=== PATIENT | female | born 1990 | race Caucasian/White ===

== ENCOUNTER 2016-12-26 15:44 | Emergency (ER) | payer OTHER ==
[~2016-12-26] VITALS: Ht 167.6 cm; Wt 74.8 kg
[2016-12-26 16:04] VITALS: BP 105/58
[2016-12-26] MEDS ORDERED: PREN-380 PO (16:06)
--- NOTE | 2016-12-26 17:27 | NUR ---
Patient transferred to bed 4 via wheelchair by tech. RN evaluating patient at bedside.
--- NOTE | 2016-12-26 17:29 | NUR ---
26F BIB FAMILY C/O NAUSEA/VOMITING X 2 DAYS; PT STATES HAD "ABOUT 15 EPISODES" OF VOMITING TODAY, BUT DENIES DIARRHEA AT THIS TIME; ABDOMEN SOFT, NON-TENDER, ACTIVE BOWEL SOUNDS X4 QUADRANTS; PT C/O RT LOWER ABDOMINAL PAIN, SHARP, RADIATES TO LEFT LOWER ABDOMEN, 8/10 X 2 DAYS; PT A&OX4, BL LUNG SOUNDS CLEAR, RR EVEN/UNLABORED, SKIN IS WARM/DRY/INTACT; PT STATES 12 WEEKS AT THIS TIME. PT RESTING IN BED W/ HOB ELEVATED AND IN LOWEST POSITION; POSITIONED FOR COMFORT; ER MD MADE AWARE OF STATUS. WILL CONTINUE TO MONITOR.
[2016-12-26] MEDS ORDERED: NACL 0.9% 1,000 ML IV SCH (17:39)
[2016-12-26] MEDS ORDERED: ONDANSETRON 4 MG/2 ML VIAL IVP ONE (17:40)
[2016-12-26] MEDS ORDERED: NACL 0.9% 1,000 ML IV ONE (17:45)
[2016-12-26] MEDS ORDERED: MORPHINE SULFATE 2 MG/ML SYR IVP ONE (17:45)
--- NOTE | 2016-12-26 17:56 | NUR ---
US AT BEDSIDE.
[2016-12-26 18:20] LABS: APPEARANCE,URINE CLOUDY (CLEAR); BLOOD, URINE TRACE-L (NEGATIVE); COLOR,URINE YELLOW (YELLOW); LEUKOCYTE ESTERASE ,URINE NEGATIVE (NEGATIVE); NITRITE, URINE NEGATIVE (NEGATIVE); PROTEIN,URINE 1+ (NEGATIVE); UGLUCOSE NEGATIVE (NEGATIVE); UROBILINOGEN,URINE 0.2 EU/dL (0.2 - 1)
[2016-12-26 18:26] LABS: BILIRUBIN,URINE NEGATIVE (NEGATIVE)
[2016-12-26 18:28] LABS: HEMATOCRIT 39.2 % (36-48); HEMOGLOBIN 13.1 g/dL (12.0-16.0); MEAN CORPUSCULAR HEMOGLOBIN 30 pg (27-31); MEAN CORPUSCULAR HGB CONC 34 g/dL (33-37); MEAN CORPUSCULAR VOLUME 88 fL (80-94); PLATELET COUNT (AUTO) 334 K/uL (140-450); RED BLOOD CELL COUNT(AUTO) 4.45 MIL/uL (4.20-5.40); RED CELL DISTRIBUTION WIDTH 11.7 % (11.6-13.7); WHITE BLOOD COUNT (AUTO) 20.7 K/uL (4.8-10.8)
[2016-12-26 18:29] LABS: BACTERIA,URINE FEW /HPF (None Seen); MUCUS,URINE 4+ /LPF (None Seen); RBC,URINE 0-3 /HPF (0-5); WBC,URINE 0-3 /HPF (0-5)
[2016-12-26 18:30] LABS: URINE AMORPHOUS URATE 3+ /HPF (None Seen)
[2016-12-26 18:33] LABS: BAND % (MANUAL) 2 % (0-8); LYMPHOCYTES % (MANUAL) 5 % (20-46); MONOCYTES % (MANUAL) 5 % (5-12); NEUTROPHILS % (MANUAL) 88 (43-65); PLATELET ESTIMATE ADEQUATE
[2016-12-26 18:43] LABS: ANION GAP 16.1 (8-16); CREATININE 0.7 mg/dL (0.6-1.3); POTASSIUM 3.1 mmol/L (3.5-5.1)
[2016-12-26 18:48] LABS: ALBUMIN 3.8 g/dL (3.4-5.0); TOTAL BILIRUBIN 0.3 mg/dL (0.0-1.0); TOTAL PROTEIN, SERUM 7.7 g/dL (6.4-8.2)
--- NOTE | 2016-12-26 19:12 | NUR ---
Pt report given to PAOLA PERALES. Transfer of care at this time.
--- NOTE | 2016-12-26 19:16 | NUR ---
GOT REPORT FROM PAOLA AYALA. PT. RESTING IN BED, NO S/SX OF DISTRESS NOTED.
[2016-12-26] MEDS ORDERED: POTASSIUM CHLORIDE 10 MEQ TABER PO ONE (20:00)
[2016-12-26 20:40] VITALS: BP 120/75
--- NOTE | 2016-12-26 20:40 | NUR ---
Patient discharged with v/s stable. Written and verbal after care instructions given and explained. Patient alert, oriented and verbalized understanding of instructions. Ambulatory with steady gait. All questions addressed prior to discharge. ID band removed. Patient advised to follow up with PMD. Rx of ZOFRAN 4 MG ODT given. Patient educated on indication of medication including possible reaction and side effects. Opportunity to ask questions provided and answered.
== END 2016-12-26 20:40 | disposition home or self-care (01) ==
LOC: MED 15:44
DX: O21.0 Mild hyperemesis gravidarum (principal); O26.891 Other specified pregnancy related conditions, first trimester; O99.511 Diseases of the respiratory system complicating pregnancy, first trimester; R10.30 Lower abdominal pain, unspecified; Z3A.12 12 weeks gestation of pregnancy; J45.909 Unspecified asthma, uncomplicated
CPT/HCPCS: 36415; 76801; 80053; 81001; 81025; 82150; 83690; 85025; 87210; 96361; 96374; 96375; 99285; J2270; J2405; J7030; Q0092